=== PATIENT | male | born 1990 | race Caucasian/White ===

== ENCOUNTER 2021-07-06 00:09 | Emergency (ER) | payer OTHER ==
[~2021-07-06] VITALS: Ht 188 cm; Wt 104.0 kg
[2021-07-06 00:20] VITALS: BP 142/81
== END 2021-07-06 02:51 | disposition left against medical advice (07) ==
LOC: ER 00:09
DX: Z53.21 Procedure and treatment not carried out due to patient leaving prior to being seen by health care provider (principal); E11.9 Type 2 diabetes mellitus without complications
CPT/HCPCS: 82962